=== PATIENT | male | born 1940 | race Caucasian/White ===

== ENCOUNTER 2018-05-02 10:57 | Emergency (ER) | payer MEDICARE ==
[~2018-05-02] VITALS: Ht 180.3 cm; Wt 90.0 kg
[2018-05-02] MEDS ORDERED: LIPITOR40 M1 PO (11:13)
[2018-05-02 11:38] LABS: HEMATOCRIT 44.9 % (39.0-50.0); HEMOGLOBIN 14.2 g/dl (14.0-18.0); IMMATURE GRANULOCYTES 1.3 % (0.0-5.0); MEAN CELL VOLUME 97.8 fL CALC (80.0-100.0); MEAN CORPUSCULAR HGB 30.9 pG CALC (26.0-32.0); MEAN CORPUSCULAR HGB CONC 31.6 g/L CALC (32.0-36.0); NEUT# 22.89 thou/uL (1.82-7.42); RED BLOOD COUNT 4.59 mill/uL (4.70-6.10); RED CELL DISTRI WIDTH 13.7 % (11.5-15.5)
[2018-05-02 11:50] LABS: ALBUMIN 2.9 g/dL (3.2-5.0); ALKALINE PHOSPHATASE 228 u/l (38-126); ANION GAP 24 (6-22 (CALC)); BILIRUBIN, TOTAL 0.8 mg/dL (0.0-1.4); BUN 56 mg/dL (8-23); BUN/CREATININE RATIO 42 (12-20 (CALC)); CARBON DIOXIDE 25 mmol/l (22-30); CHLORIDE 91 mmol/l (95-108); CREATININE 1.3 mg/dL (0.7-1.3); GFR 54 ML/MIN (>=60 (CALC)); GFR FOR AFR.AMER. > 60 ML/MIN (>=60 (CALC)); SGOT/AST 57 u/l (19-48); SGPT/ALT 75 u/l (11-66); SODIUM 134 mmol/l (137-146); TOTAL PROTEIN 5.9 g/dL (6.3-8.2)
[2018-05-02 12:02] LABS: POTASSIUM 6.2 mmol/l (3.5-5.1)
[2018-05-02 12:03] LABS: D-DIMER 3.59 mg/L (0.19-0.60); INTERNATIONAL NORMALIZED RATIO 1.1 RATIO (0.7-1.3); PROTHROMBIN TIME 12.4 SECONDS (9.0-12.5)
[2018-05-02 12:20] VITALS: BP 91/66
== END 2018-05-02 12:20 | disposition short-term general hospital (02) ==
LOC: ED 10:57
PROVIDERS: Emergency Medicine
DX: I48.91 Unspecified atrial fibrillation (principal); I24.9 Acute ischemic heart disease, unspecified; E87.5 Hyperkalemia; E86.0 Dehydration; R73.9 Hyperglycemia, unspecified; I10 Essential (primary) hypertension; N40.0 Benign prostatic hyperplasia without lower urinary tract symptoms
CPT/HCPCS: J1160